=== PATIENT | male | born 1990 | race Two or more races ===

== ENCOUNTER 2021-06-08 18:09 | Emergency (ER) | payer MEDICAID, OTHER ==
[~2021-06-08] VITALS: Ht 185.4 cm; Wt 122.5 kg
[2021-06-08 19:09] VITALS: BP 130/88
[2021-06-08] MEDS ORDERED: METHOCARBAMOL 500 MG TAB PO ONE (19:30)
[2021-06-08] MEDS ORDERED: KETOROLAC TROMETH 60MG/2ML VIAL IM ONE (19:30)
== END 2021-06-08 21:24 | disposition home or self-care (01) ==
LOC: ER 18:09
DX: S13.4XXA Sprain of ligaments of cervical spine, initial encounter (principal); V43.62XA Car passenger injured in collision with other type car in traffic accident, initial encounter; Y93.89 Activity, other specified; Y92.89 Other specified places as the place of occurrence of the external cause; Y99.8 Other external cause status
CPT/HCPCS: 72040; 96372; 99283; J1885